=== PATIENT | male | born 1980 | race African-American/Black ===

== ENCOUNTER 2016-06-17 10:22 | Outpatient (CLI) | payer OTHER | END 2016-06-17 10:23 | disposition home or self-care (01) | DX: G47.00 Insomnia, unspecified (principal); G47.8 Other sleep disorders; G47.10 Hypersomnia, unspecified ==

== ENCOUNTER 2017-04-22 15:35 | Emergency (ER) | payer OTHER ==
--- NOTE | 2017-04-22 16:07 | ED Physician Documentation ---
History of Present Illness - Stated complaint Stated Complaint: CP - Chief complaint Chief Complaint: General - History obtained from History obtained from: Patient - History of Present Illness Timing: Other (Healthy young man with what feels like a charley horse in his chest. He has had it before but never all day. He has had it for about 8 hours now. It is not debilitating. There is no radiation or shortness of breath. He does sometimes have increased pain when he takes a deep breath though. No recent travel or lip pedal edema. No history of DVT or PE or other health problems.) Review of Systems Constitutional: denies: Fever, Chills Throat: denies: Dental pain / toothache, Oral lesions / sores Cardiac: denies: Palpitations, Pedal edema, Calf pain Respiratory: denies: Dyspnea, Cough PD PAST MEDICAL HISTORY - Past Medical History Cardiovascular: Hypertension Respiratory: None Endocrine/Autoimmune: None GI: None : None HEENT: Chronic vision loss Psych: Depression Musculoskeletal: Other Derm: None - Past Surgical History Ortho: ACL reconstruction - Present Medications Home Medications: Ambulatory Orders Medication Instructions Recorded Confirmed Amlodipine/Atorvastatin 1 each PO DAILY 04/22/17 04/22/17 [Amlodipine-Atorvast 5-20 mg] - Allergies Allergies/Adverse Reactions: Allergies Allergy/AdvReac Type Severity Reaction Status Date / Time No Known Drug Allergies Allergy Verified 03/11/16 11:29 - Social History Does the pt smoke?: No Smoking Status: Never smoker Does the pt drink ETOH?: Yes Does the pt have substance abuse?: No - Immunizations Immunizations are current?: Yes - POLST Patient has POLST: No PD ED PE NORMAL - Vitals Vital signs reviewed: Yes - General General: Alert and oriented X 3, No acute distress - Neck Neck: Supple, no meningeal sign, No bony TTP - Cardiac Cardiac: RRR, No murmur - Respiratory Respiratory: No respiratory distress, Clear bilaterally - Abdomen Abdomen: Non tender - Extremities Extremities: No edema, No calf tenderness / cord - Neuro Neuro: Alert and oriented X 3, 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, Normal speech Results - Vitals Vitals: Vital Signs - 24 hr 04/22/17 15:41 Temperature 36.1 C L Heart Rate 90 Respiratory 20 Rate Blood Pressure 138/105 H O2 Saturation 98 Oxygen O2 Source Room air - EKG (time done) 1544 Rate: Rate (enter#) (81) Rhythm: NSR [place]: Normal Intervals: Normal [place] QRS: Normal Ischemia: Normal ST segments Computer interpretation: Agree with computer - Labs Labs: Laboratory Tests 04/22/17 04/22/17 04/22/17 16:15 16:15 16:15 WBC 8.2 RBC 4.84 Hgb 15.2 Hct 43.4 MCV 89.6 MCH 31.5 H MCHC 35.1 RDW 13.4 Plt Count 214 MPV 7.6 Neut # 5.7 Lymph # 1.9 [place] # 0.4 Eos # 0.2 Baso # 0.0 Absolute Nucleated RBC 0.01 Nucleated RBC % 0.1 Sodium 136 Potassium 3.3 L Chloride 99 L Carbon Dioxide 25 Anion Gap 12.0 BUN 15 Creatinine 1.1 Estimated GFR (MDRD) 92 Glucose 176 H Calcium 9.1 Total Bilirubin 0.7 AST 26 ALT 25 Alkaline Phosphatase 57 Troponin I < 0.04 Total Protein 7.1 Albumin 4.1 Globulin 3.0 Albumin/Globulin Ratio 1.4 Lipase 19 L - Rads (name of study) 2v chest Radiology: EMP read contemporaneously (L midlung granuloma, NAD) PD MEDICAL DECISION MAKING - ED course ED course: 36-year-old gentleman with atypical chest pain of 8 hours duration with negative biomarkers and nonischemic EKG. Departure - Departure Disposition: 01 Home, Self Care Clinical Impression: Chest pain Qualifiers: Chest pain type: unspecified Qualified Code(s): R07.9 - Chest pain, unspecified Condition: Good Record reviewed to determine appropriate education?: Yes Instructions: ED Chest Pain Atypical Unkn Cause Comments: Your blood sugar and blood pressure were elevated today, recheck these with your physician. Call your doctor to arrange a follow-up appointment, make the next available appointment. In the interim, return anytime if worse or if new symptoms develop.
[2017-04-22 16:26] LABS: BASOPHILS % (AUTO) 0.5 %; EOSINOPHILS # (AUTO) 0.2 10^3/uL (0.0-0.7); EOSINOPHILS % (AUTO) 2.1 %; HCT - HEMATOCRIT 43.4 % (42.0-52.0); HGB - HEMOGLOBIN 15.2 g/dL (14.0-18.0); LYMPHOCYTES # (AUTO) 1.9 10^3/uL (1.5-3.5); MEAN CORPUSCULAR HEMOGLOBIN 31.5 pg (27.0-31.0); MEAN CORPUSCULAR HGB CONC 35.1 g/dL (32.0-36.0); MEAN CORPUSCULAR VOLUME 89.6 fL (80.0-94.0); MEAN PLATELET VOLUME 7.6 fL (7.4-11.4); MONOCYTES # (AUTO) 0.4 10^3/uL (0.0-1.0); NEUTROPHILS # (AUTO) 5.7 10^3/uL (1.5-6.6); NEUTROPHILS % (AUTO) 69.4 %; NUCLEATED RED BLOOD CELLS AUTO 0.1 /100WBC; RED BLOOD COUNT 4.84 10^6/uL (4.70-6.10); RED CELL DISTRIBUTION WIDTH 13.4 % (12.0-15.0); UNCORRECTED WHITE BLOOD COUNT 8.2 x10^3/uL; WHITE BLOOD COUNT 8.2 x10^3/uL (4.8-10.8)
[2017-04-22 16:35] LABS: ALBUMIN/GLOBULIN RATIO 1.4 (1.0-2.2); BILIRUBIN,TOTAL 0.7 mg/dL (0.2-1.0); CALCIUM 9.1 mg/dL (8.5-10.3); CREATININE 1.1 mg/dL (0.6-1.2); POTASSIUM 3.3 mmol/L (3.5-5.0); TOTAL PROTEIN 7.1 g/dL (6.7-8.2)
--- NOTE | 2017-04-22 16:57 | XRAY Preliminary Report ---
Exam: XR CHEST 2 VIEW PA/LAT IMPRESSION: Calcified granuloma, lateral left midlung, otherwise unremarkable 2-view chest radiograph yAgusto RADIFernando SITE ID: [id number]
--- NOTE | 2017-04-22 17:00 | XRAY Report ---
EXAM: CHEST RADIOGRAPHY EXAM DATE: 04/22/2017 04:23 PM. CLINICAL HISTORY: Chest pain. COMPARISON: None. TECHNIQUE: 2 views. FINDINGS: Lungs/Pleura: Calcified 5 mm nodule, lateral left midlung, otherwise no focal opacities evident. No p leural effusion. No pneumothorax. Normal volumes. Mediastinum: Heart and mediastinal contours are unremarkable. Other: No bony abnormality noted. IMPRESSION: Calcified granuloma, lateral left midlung, otherwise unremarkable 2-view chest radiograph jori ENGLISH Referring Provider Line: [phone] SITE ID: [id number]
[2017-04-22 17:06] VITALS: BP 145/89
== END 2017-04-22 17:07 | disposition home or self-care (01) ==
LOC: ED 15:35
DX: R07.9 Chest pain, unspecified (principal); I10 Essential (primary) hypertension
CPT/HCPCS: 36415; 71020; 80053; 83690; 84484; 85025; 93005; 99283

== ENCOUNTER 2017-08-13 14:18 | Emergency (ER) | payer OTHER ==
[2017-08-13 14:43] VITALS: BP 158/98
--- NOTE | 2017-08-13 15:46 | ED Physician Documentation ---
PD HPI SKIN - Stated complaint Stated Complaint: RASH ON ARMPIT - Chief complaint Chief Complaint: Wound - History obtained from History obtained from: Patient - History of Present Illness Timing - onset: How many days ago (4) Timing - duration: Days (4) Timing - details: Gradual onset, Still present Location: RUE Quality / character: Itchy, Painful, Burning, Vesicular Contributing factors: Other (recent in the family) Similar symptoms before: Has not had sx before Recently seen: Not recently seen - Additional information Additional information: 36-year-old previously well male who has a history of some anxiety has recently developed a rash on his right axilla. He had some odd sensation over his arm on the right side and then developed small vesiculations in patches in the right axilla. He does not have these on his arm. He has had chickenpox in the past. He indicates that he has run out of his hydroxyzine which he usually takes for he is anxiety and with this he has not been able to sleep well. He also indicates that there has been a recent in the family. Review of Systems Constitutional: denies: Fever Eyes: denies: Decreased vision Ears: denies: Ear pain Nose: denies: Congestion Throat: denies: Sore throat Cardiac: denies: Chest pain / pressure Respiratory: denies: Dyspnea, Cough GI: denies: Abdominal Pain, Nausea, Vomiting : denies: Dysuria Skin: reports: Rash Musculoskeletal: reports: Extremity pain. denies: Neck pain, Back pain, Extremity swelling Neurologic: denies: Generalized weakness, Focal weakness, Numbness PD PAST MEDICAL HISTORY - Past Medical History Cardiovascular: Hypertension Respiratory: None Neuro: None Endocrine/Autoimmune: None GI: None : None HEENT: Chronic vision loss Psych: Depression, Anxiety Musculoskeletal: Other Derm: None - Past Surgical History Past Surgical History: Yes Ortho: ACL reconstruction - Present Medications Home Medications: Ambulatory Orders Medication Instructions Recorded Confirmed Amlodipine/Atorvastatin 1 each PO DAILY 04/22/17 08/13/17 [Amlodipine-Atorvast 5-20 mg] Valacyclovir HCl [Valacyclovir] 1,000 mg PO TID #21 tablet 08/13/17 hydrOXYzine HCl [Hydroxyzine HCl] 50 - 100 mg PO Q6HR PRN #30 tablet 08/13/17 - Allergies Allergies/Adverse Reactions: Allergies Allergy/AdvReac Type Severity Reaction Status Date / Time No Known Drug Allergies Allergy Verified 03/11/16 11:29 - Social History Does the pt smoke?: No Smoking Status: Never smoker Does the pt drink ETOH?: Yes ETOH Use: Beer Does the pt have substance abuse?: No - Immunizations Immunizations are current?: Yes - POLST Patient has POLST: No PD ED PE NORMAL - Vitals Vital signs reviewed: Yes (hypertensive ) - General General: Alert and oriented X 3, No acute distress, Well developed/nourished - HEENT HEENT: Atraumatic, PERRL, EOMI - Neck Neck: Supple, no meningeal sign - Respiratory Respiratory: No respiratory distress - Derm Derm: Normal color, Warm and dry, Other (There are clusters of the vesiculations consistent with herpes zoster in the right axilla.) - Extremities Extremities: No deformity, No edema - Neuro Neuro: No motor deficit, No sensory deficit Eye Opening: Spontaneous Motor: Obeys Commands Verbal: Oriented GCS Score: 15 - Psych Psych: Normal mood, Normal affect Results - Vitals Vitals: Vital Signs - 24 hr 08/13/17 14:40 Temperature 36.6 C Heart Rate 70 Respiratory 18 Rate Blood Pressure 158/98 H O2 Saturation 98 Oxygen O2 Source Room air PD MEDICAL DECISION MAKING - ED course Complexity details: reviewed old records, considered differential, d/w patient ED course: 36-year-old male with a rash to his right axilla appears to have acute zoster. Departure - Departure Disposition: 01 Home, Self Care Clinical Impression: Zoster Qualifiers: Herpes zoster complications: without complications Qualified Code(s): B02.9 - Zoster without complications Condition: Stable Instructions: ED Shingles Follow-Up: DAVID MARLEY [Primary Care Provider] - Prescriptions: hydrOXYzine HCl [Hydroxyzine HCl] 50 - 100 mg PO Q6HR PRN #30 tablet PRN Reason: Anxiety Valacyclovir HCl [Valacyclovir] 1,000 mg PO TID #21 tablet
== END 2017-08-13 15:57 | disposition home or self-care (01) ==
LOC: ED 14:18
DX: B02.9 Zoster without complications (principal)
CPT/HCPCS: 99283